=== PATIENT | female | born 1990 | race Caucasian/White ===

== ENCOUNTER 2017-11-02 14:42 | Emergency (ER) | payer OTHER ==
[2017-11-02] MEDS ORDERED: SODIUM CHLORIDE 0.9% 500 ML INFUS.BAG IV ONE (15:00)
[2017-11-02] MEDS ORDERED: ACETAMINOPHEN 1000 MG/100 ML VIAL (NON FORMULARY) IVPB ONE (15:00)
[2017-11-02 15:12] VITALS: BMI 33.1
[2017-11-02] MEDS ORDERED: ACETAMINOPHEN INJECTION 100 ML IVPB ONE (15:15)
[2017-11-02 15:29] LABS: BASO % 0.7 % (0-2.0); EOS % 0.8 % (0-4.5); HEMATOCRIT 31.7 % (32.4-45.2); HEMOGLOBIN 9.7 GM/dL (10.7-15.3); LYMPH % 19.7 % (8-40); MCHC 30.6 g/dl (32.0-36.0); MEAN CELL VOLUME 62.3 fl (80-96); MEAN PLT VOLUME 9.6 fl (7.5-11.1); MONO % 5.6 % (3.8-10.2); NEUT % 73.2 % (42.8-82.8); PLATELET COUNT 245 K/MM3 (134-434); RBC 5.08 M/mm3 (3.60-5.2); RDW 17.4 % (11.6-15.6); WHITE BLOOD COUNT 12.2 K/mm3 (4.0-10.0)
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
[2017-11-02 15:52] LABS: ALBUMIN 2.4 g/dl (3.4-5.0); ALK PHOS 72 U/L (45-117); ANION GAP 6 (8-16); BILIRUBIN,TOTAL 0.3 mg/dL (0.2-1.0); BLOOD UREA NITROGEN 9 mg/dL (7-18); CALCIUM 8.3 mg/dL (8.5-10.1); CHLORIDE 111 mmol/L (98-107); CO2 22 mmol/L (21-32); CREATININE 0.7 mg/dL (0.55-1.02); GLUCOSE,RANDOM 123 mg/dL (74-106); MAGNESIUM 1.9 mg/dL (1.8-2.4); POTASSIUM 3.9 mmol/L (3.5-5.1); SGOT/AST 16 U/L (15-37); SGPT/ALT 18 U/L (12-78); SODIUM 139 mmol/L (136-145); TOT PROT 6.5 g/dl (6.4-8.2)
[2017-11-02 16:11] LABS: MCH 19.1 pg (25.7-33.7)
[2017-11-02 17:02] LABS: ANISOCYTOSIS 2+
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
[2017-11-02 19:43] LABS: URINE APPEARANCE CLOUDY; URINE BILIRUBIN NEGATIVE (<2.0 mg/dL); URINE COLOR LTYELLOW; URINE GLUCOSE (UA) NEGATIVE (NEGATIVE); URINE KETONE NEGATIVE (NEGATIVE); URINE NITRITE NEGATIVE (NEGATIVE); URINE PROTEIN NEGATIVE (NEGATIVE); URINE UROBILINOGEN NEGATIVE mg/dL (0.2-1.0)
[2017-11-02 19:46] LABS: URINE LEUK ESTERASE 3+ (NEGATIVE)
[2017-11-02 19:48] LABS: EPI CELLS MANY /HPF (FEW); URINE BACTERIA RARE /hpf (NONE SEEN); URINE MUCUS RARE
[2017-11-02] MEDS ORDERED: NITROFURANTOIN MACROCRYSTAL 50 MG CAPSULE (FP) PO SCH (20:00)
[2017-11-02] MEDS ORDERED: NITROFURANTOIN MACROCRYSTAL 50 MG CAPSULE (FP) ONE (20:35)
[2017-11-02 22:46] VITALS: BP 121/70; PULSE 75; TEMP 98.5
--- NOTE | 2017-11-04 14:21 | EKG ---
Test Reason : Blood Pressure : / mmHG Vent. Rate : 111 BPM Atrial Rate : 111 BPM P-R Int : 144 ms QRS Dur : 086 ms QT Int : 332 ms P-R-T Axes : 020 041 047 degrees QTc Int : 451 ms SINUS TACHYCARDIA CANNOT RULE OUT ANTERIOR INFARCT , AGE UNDETERMINED ABNORMAL ECG NO PREVIOUS ECGS AVAILABLE Confirmed by TAYE LOOMIS MD ([id number]) on 11/04/2017 2:20:41 PM Referred By: Confirmed By:TAYE LOOMIS MD
== END 2017-11-02 23:50 | disposition home or self-care (01) ==
LOC: JER 14:42
PROC: 3E033NZ Introduction of Analgesics, Hypnotics, Sedatives into Peripheral Vein, Percutaneous Approach (ICD-10-PCS; principal; 2017-11-02)
DX: O26.892 Other specified pregnancy related conditions, second trimester (principal); S39.81XA Other specified injuries of abdomen, initial encounter; V43.52XA Car driver injured in collision with other type car in traffic accident, initial encounter; Y92.414 Local residential or business street as the place of occurrence of the external cause; Y93.89 Activity, other specified; O24.410 Gestational diabetes mellitus in pregnancy, diet controlled; O13.2 Gestational [pregnancy-induced] hypertension without significant proteinuria, second trimester; Z3A.25 25 weeks gestation of pregnancy
CPT/HCPCS: 36415; 71046-TC-FY; 76815; 80053; 81003; 81015; 83735; 85025; 93005; 93010; 99283-25; J0131

== ENCOUNTER 2018-02-10 07:20 | Inpatient (IN) | payer OTHER ==
--- NOTE | 2018-02-10 08:27 | HP ---
Past Medical History - Primary Care Physician PCP:: Kenny Mathur - Admission Chief Complaint: 27yo P2 with at EGA 39 2/7 wks admitted for repeat section. History of Present Illness: Prior C/S x 2 Pt is not in labor. 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: Alzheimer's, CVA, Dementia, Migraine, Multiple Sclerosis, Peripheral Neuropathy, Parkinson's, Seizure, Syncope, TIA, Vertigo, Other Cardiovascular: No: AFIB, Aneurysm, Aortic Insufficiency, Aortic Stenosis, CAD, CHF, Deep Vein Thrombosis, HTN, Hyperlipdemia, [place], Mitral Insufficiency, Mitral Stenosis, Murmur, Pulmonary Hypertension, Other Pulmonary: No: Asthma, Bronchitis, Cancer, COPD, O2 Dependent, Pneumonia, Previously Intubated, Pulmonary Embolus, Pulmonary Fibrosis, Sleep Apnea, Other Gastrointestinal: No: Ascites, Cancer, Constipation, Crohn's Disease, Diverticulitis, Diverticulosis, Esophageal Varices, Gastritis, GERD, GI Bleed, Hemorrhoids, Hiatal Hernia, Inflamatory Bowel Disease, Irritable Bowel Disease, Pancreatitis, Peptic Ulcer Disease, Ulcerative Colitis, Other Hepatobiliary: No: Cirrhosis, Cholelithiasis, Cholecystitis, Choledocholithiasis , Hepatitis A, Hepatitis B, Hepatitis C, Other Renal/: No: Renal Failure, Renal Inusuff, BPH, Cancer, Hematuria, Hemodialysis , Neurogenic Bladder, Renal Calculi, UTI, Other Reproductive: No: Ectopic , Endometriosis, Fibroids, PID, Polycystic Ovary Syndrome, Postmenopausal, Other ...Para: 2 (C/S x 2) Heme/Onc: Yes: Anemia Infectious Disease: No: AIDS, C-Diff, Herpes Zoster, HIV, MRSA, STD's, Tuberculosis, VREF, Other Psych: No: Addictions, Anxiety, Bipolar, Depression, Panic, Psychosis, Schizophrenia, Other Musculoskeletal: No: Bursitis, Chronic low back pain, Hemiparesis, Hemiplegia, Osteoarthritis, Paraplegia, Other Rheumatology: No: Fibromyalgia, Gout, Lupus, Rheumatoid Arthritis, Sarcoidosis, Vasculitis, Other ENT: No: Allergic Rhinitis, Sinusitis, Other Endocrine: No: Tomás's Disease, [place]'s Disease, Diabetes Insipidus, Diabetes Mellitus, Hyperparathyroidism, Hyperthyroidism, Hypothyroidism, Osteopenia, SIADH, Other Dermatology: No: Basal Cell, Cellulitis, Eczema, Melanoma, Psoriasis, Squamous Cell, Other - Past Surgical History Past Surgical History: Yes: Hx Myomectomy: No Hx Transabdominal Cerclage: No - Smoking History Smoking history: Never smoked Have you smoked in the past 12 months: No - Alcohol/Substance Use Hx Alcohol Use: No History of Substance Use: reports: None - Social History Usual Living Arrangement: Yes: With Spouse, With Child ADL: Independent History of Recent Travel: No Home Medications - Allergies Allergies/Adverse Reactions: Allergies Allergy/AdvReac Type Severity Reaction Status Date / Time No Known Allergies Allergy Verified 02/10/18 08:11 - Home Medications Home Medications: Ambulatory Orders Vit Calc,Iron,Folic [ Vitamins] 1 each PO DAILY 11/02/17 Family Disease History - Family Disease History Family History: Unremarkable Review of Systems - Review of Systems Constitutional: reports: No Symptoms Eyes: reports: No Symptoms HENT: reports: No Symptoms Neck: reports: No Symptoms Cardiovascular: reports: No Symptoms Respiratory: reports: No Symptoms Gastrointestinal: reports: No Symptoms Genitourinary: reports: No Symptoms Breasts: reports: No Symptoms Reported Musculoskeletal: reports: No Symptoms Integumentary: reports: No Symptoms Neurological: reports: No Symptoms Endocrine: reports: No Symptoms Hematology/Lymphatic: reports: No Symptoms Psychiatric: reports: No Symptoms Pain Intensity: 0 Physical Exam - Maternity Constitutional: Yes: Well Nourished, No Distress, Calm Eyes: Yes: WNL, Conjunctiva Clear HENT: Yes: WNL, Atraumatic, Normocephalic Neck: Yes: WNL, Supple, Trachea Midline Cardiovascular: Yes: WNL, Regular Rate and Rhythm Lungs: Clear to auscultation, Normal air movement - Abdominal Exam/OB Fundal Height: 39 Number of Fetuses: Single Presentation: Vertex Contractions: No Regularity: Irritability Intensity: Unaware Monitor Mode: External Heart Rate (range): 130 Heart Rate Location: Midline Category: I Accelerations: Uniform Decelerations: None - Vaginal Exam/OB Vaginal Bleediing: No Speculum Exam: No Presentation: Vertex/Position - Physical Exam Musculoskeletal: Yes: WNL Extremities: Yes: WNL Edema: Yes Edema: LLE: Trace, RLE: Trace Integumentary: Yes: WNL Deep Tendon Reflex Grade: Normal +2 ...Motor Strength: WNL Psychiatric: Yes: WNL, Alert, Oriented Hemorrhage Risk Assessment - Risk Factors Medium Risk Factors: Yes: None High Risk Factors: Yes: None Risk Score: 1 Risk Level: Medium Risk Imaging - Results Ultrasound: Report Reviewed Assessment/Plan 27yo P2 with at EGA 39 2/7 wks admitted for repeat section. We discussed the risks and benefits of C/S at length, including but not limited to scarring, pain, bleeding, infection, injury to underlying organs and structures, need for additional surgery to repair/treat any problems or complications, complications/injuries, etc. The pt verbalized her understanding and requested to proceed with surgery. The pt is aware that all surgeries have risks and no guarantees can be provided.
[2018-02-10 08:52] VITALS: BMI 35.1
[2018-02-10] MEDS ORDERED: CITRIC ACID/SODIUM CITRATE 30 ML UNIT-DOSE CUP PO ONE ×2 (08:55→08:57)
[2018-02-10] MEDS ORDERED: ELECTROLYTE-148 SOLN 500 ML IV ONE (08:57)
[2018-02-10] MEDS ORDERED: TUBERCULIN PPD 5 TU/0.1ML SYRINGE (IN PATIENT USE ONLY) ID ONE (08:57)
[2018-02-10] MEDS: ELECTROLYTE-148 SOLN 1,000 ML IV SCH (09:00)
[2018-02-10] MEDS ORDERED: ePHEDrine SULFATE 50 MG/1 ML AMPULE ONE (09:17)
[2018-02-10] MEDS ORDERED: morphine SULFATE/Preservative Free 0.5 MG/ML (1cc Syringe) ONE (09:17)
[2018-02-10] MEDS ORDERED: PHENYLEPHRINE HCL 10 MG/1 ML SINGLE DOSE VIAL ONE (09:32)
[2018-02-10] MEDS ORDERED: ceFAZolin SODIUM 1 GM VIAL ONE ×2 (09:35→16:36)
[2018-02-10] MEDS ORDERED: OXYTOCIN 10 UNITS/ML VIAL ONE (09:37)
[2018-02-10] MEDS ORDERED: IBUPROFEN 800 MG/8 ML IJ IVPB PRN (11:02)
[2018-02-10] MEDS ORDERED: METHYLERGONOVINE MALEATE 0.2 MG/1 ML AMP IM PRN (11:02)
[2018-02-10] MEDS ORDERED: WITCH HAZEL 50% (TUCKS) 40 PAD/JAR PAD TP PRN (11:02)
[2018-02-10] MEDS ORDERED: ONDANSETRON 4 MG/2 ML VIAL IVPUSH PRN (11:13)
--- NOTE | 2018-02-10 11:13 | OP ---
Operative Note - Note: Operative Date: 02/10/18 Pre-Operative Diagnosis: at EGA 39w 2d. Prior C/S Operation: Repeat LTC/S Findings: Live baby girl in vtx presentation. No meconium in amniotic fluid. 9/9. Normal uterus, ovaries, tubes. Post-Operative Diagnosis: Same as Pre-op Surgeon: Kenny Mathur Packing Inspector: Damon Dumont Anesthesiologist/HAIR BOILER: Jose Emery Anesthesia: Spinal Specimens Removed: Placenta Estimated Blood Loss (mls): 700 Drains & Tubes with Location: [place] Cath Drains, Volume Out (mls): 250 Blood Volume Replaced (mls): 0 Fluid Volume Replaced (mls): 1,700 Operative Report Dictated: Yes
[2018-02-10] MEDS ORDERED: DEXTROSE 5%-WATER - 50 ML IVPB ONE (16:36)
[2018-02-10] MEDS: CEFAZOLIN 1 GM in DEXTROSE 5%-WATER - 50 ML IVPB SCH (17:07)
--- NOTE | 2018-02-10 20:23 | OP ---
DATE OF OPERATION: 02/10/2018 PREOPERATIVE DIAGNOSIS: at estimated gestational age of 39 weeks 2 days, previous section x2. POSTOPERATIVE DIAGNOSIS: at estimated gestational age of 39 weeks 2 days, previous section x2. PROCEDURE: Repeat low transverse section via Pfannenstiel skin incision. SURGEON: Kenny Mathur MD RHIT: Damon Dumont MD ANESTHESIOLOGIST: Jose Emery DO ANESTHESIA: Spinal. COMPLICATIONS: None. ESTIMATED BLOOD LOSS: 700 mL. URINE OUTPUT: 250 mL of clear urine at the end of the procedure. INTRAVENOUS FLUIDS: 1700 mL of Crystalloid. PATHOLOGY: Placenta. FINDINGS: Live baby girl in vertex presentation. No meconium in amniotic fluids. Normal uterus, fallopian tubes, and ovaries. Apgars are 9 and 9. PROCEDURE: The patient was met preoperatively. Risks, benefits, and alternatives of surgery were discussed in detail. All questions were answered. The patient was brought to the OR with IV running. She was placed on the surgical table in the sitting position. Spinal anesthesia was achieved without difficulty. The patient was then placed in a supine position with a leftward tilt. A [place] catheter was inserted and left to drain to gravity. The patient was then prepped and draped in the usual sterile fashion. The timeout procedure was conducted as per standard protocol. The surgeons then proceeded with the operation. The patient was noted to have a hypertrophic and indented scar from her previous deliveries. The scar was excised and sent to Pathology. The subcutaneous incision was then taken down to the level of the fascia. The fascia was incised in the midline. The incision was extended bilaterally using Kelly scissors. The fascia was then dissected away from the rectus muscles superiorly and inferiorly. The rectus muscles were in the midline. The peritoneum was identified and entered sharply. The peritoneal incision was extended superiorly and inferiorly using Metzenbaum scissors. The bladder was then dissected away from the lower uterine segment using sharp dissection. The bladder was reflected downwards. The uterus was incised transversely in the lower uterine segment. The uterine incision was extended bilaterally using bandage scissors. The amniotic sac was ruptured and clear amniotic fluid was noted. The baby was delivered from vertex presentation without complications. The umbilical cord was clamped and cut. The baby was crying spontaneously and handed to the awaiting coal tower operator. The placenta was then removed manually. The uterus was cleared of all clots and debris. The uterine incision was repaired using a 0 Biosyn suture with running locking stitch. Good hemostasis was noted. The uterine incision was then imbricated using a 0 Biosyn suture with good hemostasis. The bladder peritoneum was reapproximated using a 0 Biosyn suture. Good hemostasis was confirmed. The operative site was irrigated using copious amounts of normal saline. Once the saline was aspirated, good hemostasis was noted. The peritoneum was then approximated using a 2-0 chromic suture. The rectus muscles were approximated using several interrupted 2-0 chromic sutures. The fascia was closed using a 0 Vicryl suture with good hemostasis and approximation. The subcutaneous adipose tissues were approximated using several interrupted 0 Vicryl sutures to eliminate space. The skin was then closed using a 4-0 Vicryl suture using a subcutaneous technique. Sponge, lap, and needle counts were correct. The patient was transferred to recovery room, awakened, and in stable condition. Feliciano OBREGON/[id number]
[2018-02-11] MEDS ORDERED: DEXTROSE 5%-WATER - 50 ML IVPB ONE ×2 (01:08→09:33)
[2018-02-11] MEDS ORDERED: ceFAZolin SODIUM 1 GM VIAL ONE ×2 (01:09→09:33)
[2018-02-11] MEDS: CEFAZOLIN 1 GM in DEXTROSE 5%-WATER - 50 ML IVPB SCH ×2 (01:16→10:00)
[2018-02-11 08:12] LABS: BASO % 0.4 % (0-2.0); EOS % 1.1 % (0-4.5); HEMATOCRIT 30.3 % (32.4-45.2); HEMOGLOBIN 9.1 GM/dL (10.7-15.3); LYMPH % 23.5 % (8-40); MCHC 29.9 g/dl (32.0-36.0); MEAN PLT VOLUME 10.4 fl (7.5-11.1); MONO % 5.2 % (3.8-10.2); NEUT % 69.8 % (42.8-82.8); PLATELET COUNT 192 K/MM3 (134-434); RBC 5.14 M/mm3 (3.60-5.2); RDW 19.1 % (11.6-15.6); WHITE BLOOD COUNT 12.5 K/mm3 (4.0-10.0)
[2018-02-11 08:20] LABS: MCH 17.6 pg (25.7-33.7)
--- NOTE | 2018-02-11 08:52 | PN ---
Progress Note (short form) - Note Progress Note: S/P C Section under spinal anesthesia with duramorph uneventful.Patient stable and has little pain for which she is on medication.No any anesthesia related problem.Patient Dc from the anesthesia care.
--- NOTE | 2018-02-11 09:24 | PN ---
Post Progress Note - Subjective Subjective: No complaints Post Day: 1 Type of Delivery: Repeat C/S Vital Signs: Vital Signs Temperature 98.9 F 02/11/18 06:00 Pulse Rate 76 02/11/18 06:00 Respiratory Rate 20 02/11/18 06:00 Blood Pressure 114/74 02/11/18 06:00 O2 Sat by Pulse Oximetry (%) 100 02/10/18 11:40 Uterus: Yes: Fundus Firm, Fundus below umbilicus, Non-tender Incision: Yes: Dressing dry and intact Abdomen/GI: Yes: Abdomen soft, Tolerating PO Lochia: Yes: Rubra Lochia, amount: Small Extremities: Yes: Edema (1+ bilat) Perineum: Yes: Intact - Labs Labs: CBC WBC 12.5 K/mm3 (4.0-10.0) H 02/11/18 06:15 RBC 5.14 M/mm3 (3.60-5.2) 02/11/18 06:15 Hgb 9.1 GM/dL (10.7-15.3) L 02/11/18 06:15 Hct 30.3 % (32.4-45.2) L 02/11/18 06:15 MCV 59.0 fl (80-96) L 02/11/18 06:15 MCH 17.6 pg (25.7-33.7) L 02/11/18 06:15 MCHC 29.9 g/dl (32.0-36.0) L 02/11/18 06:15 RDW 19.1 % (11.6-15.6) H 02/11/18 06:15 Plt Count 192 K/MM3 (134-434) 02/11/18 06:15 MPV 10.4 fl (7.5-11.1) 02/11/18 06:15 Absolute Neuts (auto) 8.7 K/mm3 (1.5-8.0) H 02/11/18 06:15 Neutrophils % 69.8 % (42.8-82.8) 02/11/18 06:15 Lymphocytes % 23.5 % (8-40) 02/11/18 06:15 Monocytes % 5.2 % (3.8-10.2) 02/11/18 06:15 Eosinophils % 1.1 % (0-4.5) 02/11/18 06:15 Basophils % 0.4 % (0-2.0) 02/11/18 06:15 Nucleated RBC % 0 % (0-0) 02/11/18 06:15 Assessment/Plan 27yo P2 POD#1 s/p repeat LTC/S doing well, stable, afebrile. Asymptomatic for anemia. Post op care reviewed. Continue routine care. Ambulation encouraged Advance diet as tolerated..
[2018-02-11] MEDS: PRENATAL VITAMINS W/ FOLIC ACID TABLET (FP) PO SCH (09:57)
[2018-02-11] MEDS: IBUPROFEN 600 MG TABLET (FP) PO PRN ×3 (09:57→20:11)
[2018-02-11] MEDS: ENOXAPARIN NA (PORCINE) 40 MG/0.4 ML DISP.SYRIN SQ SCH (09:57)
[2018-02-11] MEDS ORDERED: DIPHTH,PERTUSS(ACELL),TET 0.5 ML DISP.SYRIN IM ONE (10:00)
[2018-02-11] MEDS ORDERED: BISACODYL 10 MG SUPP.RECT RC PRN (11:02)
[2018-02-11] MEDS: OXYTOCIN 20 UNITS in 0.9% NS 20 UNIT/1,000 ML INFUS.BAG IV SCH ×2 (12:08→19:38)
[2018-02-11] MEDS: ELECTROLYTE-148 SOLN 1,000 ML IV SCH (14:25)
[2018-02-11] MEDS: SENNOSIDES/DOCUSATE COMBO (SENNA PLUS) TABLET (UD) PO PRN (21:15)
[2018-02-12] MEDS: IBUPROFEN 600 MG TABLET (FP) PO PRN ×3 (05:59→21:38)
[2018-02-12] MEDS: oxyCODONE HCL 5 MG TABLET PO PRN ×2 (08:58→21:38)
[2018-02-12] MEDS: SIMETHICONE 80 MG TAB.CHEW (FP) PO PRN ×3 (08:59→21:38)
[2018-02-12] MEDS: ENOXAPARIN NA (PORCINE) 40 MG/0.4 ML DISP.SYRIN SQ SCH (09:19)
[2018-02-12] MEDS: PRENATAL VITAMINS W/ FOLIC ACID TABLET (FP) PO SCH (09:20)
--- NOTE | 2018-02-12 14:57 | PN ---
Post Progress Note - Subjective Subjective: No complaints Post Day: 2 Type of Delivery: Repeat C/S Vital Signs: Vital Signs Temperature 97.9 F 02/12/18 10:00 Pulse Rate 64 02/12/18 10:00 Respiratory Rate 20 02/12/18 10:00 Blood Pressure 121/76 02/12/18 10:00 O2 Sat by Pulse Oximetry (%) 100 02/10/18 11:40 Breast Exam: Yes: Soft Uterus: Yes: Fundus Firm Incision: Yes: Sutures intact Abdomen/GI: Yes: Abdomen soft, Tolerating PO Lochia: Yes: Rubra Lochia, amount: Small Extremities: Yes: Calves non-tender, Edema (trace) Perineum: Yes: Intact Activity: Ambulating - Labs Labs: CBC WBC 12.5 K/mm3 (4.0-10.0) H 02/11/18 06:15 RBC 5.14 M/mm3 (3.60-5.2) 02/11/18 06:15 Hgb 9.1 GM/dL (10.7-15.3) L 02/11/18 06:15 Hct 30.3 % (32.4-45.2) L 02/11/18 06:15 MCV 59.0 fl (80-96) L 02/11/18 06:15 MCH 17.6 pg (25.7-33.7) L 02/11/18 06:15 MCHC 29.9 g/dl (32.0-36.0) L 02/11/18 06:15 RDW 19.1 % (11.6-15.6) H 02/11/18 06:15 Plt Count 192 K/MM3 (134-434) 02/11/18 06:15 MPV 10.4 fl (7.5-11.1) 02/11/18 06:15 Absolute Neuts (auto) 8.7 K/mm3 (1.5-8.0) H 02/11/18 06:15 Neutrophils % 69.8 % (42.8-82.8) 02/11/18 06:15 Lymphocytes % 23.5 % (8-40) 02/11/18 06:15 Monocytes % 5.2 % (3.8-10.2) 02/11/18 06:15 Eosinophils % 1.1 % (0-4.5) 02/11/18 06:15 Basophils % 0.4 % (0-2.0) 02/11/18 06:15 Nucleated RBC % 0 % (0-0) 02/11/18 06:15 Assessment/Plan 27yo P2 POD#2 s/p repeat LTC/S doing well, stable, afebrile. Asymptomatic for anemia. Post op care reviewed. Continue routine care. Ambulation encouraged Advance diet as tolerated..
--- NOTE | 2018-02-12 15:00 | DS ---
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 Vital Signs: Vital Signs Temperature 97.9 F 02/12/18 10:00 Pulse Rate 64 02/12/18 10:00 Respiratory Rate 20 02/12/18 10:00 Blood Pressure 121/76 02/12/18 10:00 O2 Sat by Pulse Oximetry (%) 100 02/10/18 11:40 Constitutional: Yes: Well Nourished, No Distress, Calm Eyes: Yes: WNL, Conjunctiva Clear HENT: Yes: WNL, Atraumatic, Normocephalic Neck: Yes: WNL, Supple, Trachea Midline Cardiovascular: Yes: WNL, Regular Rate and Rhythm Respiratory: Yes: WNL, Regular, CTA Bilaterally Gastrointestinal: Yes: WNL, Normal Bowel Sounds, Soft ...Rectal Exam: Yes: Deferred Renal/: Yes: WNL ....Post : Yes: Uterus firm, Uterus non-tender, Slight lochia rubra Breast(s): Yes: WNL Musculoskeletal: Yes: WNL Extremities: Yes: WNL Edema: Yes Edema: LLE: Trace, RLE: Trace Integumentary: Yes: WNL Wound/Incision: Yes: Clean/Dry, Well Approximated, Sutures Intact, Open to air Neurological: Yes: WNL, Alert, Oriented ...Motor Strength: WNL Psychiatric: Yes: WNL, Alert, Oriented Labs: CBC, BMP 02/11/18 06:15 Delivery - Delivery Section: Repeat, Low Flap Transverse Type of Anesthesia: Spinal Episiotomy/Laceration: None EBL (cc): 700 Delivery, Single - Stages of Labor Date of Delivery: 02/10/18 Time of Delivery: 09:59 Date Placenta Delivered: 02/10/18 Time Placenta Delivered: 10:00 Placenta: Yes: Expressed, Manual Removal - Condition of Piccoloist/Mammography Tech Present: Yes Name: Myrna Rm Gender: Female Weight: 3.629 kg Position: Right, OT Total Hours ROM (Hrs/Mins): 2 min - 1 Minute Total Score: 9 10 Minutes Total Score: 9 - Feeding Plan Initial Plan: Exclusive throughout hospitalization Discharge Summary Reason For Visit: Repeat C/S at 39 wks , prior C/S Procedures: Principal: Repeat LT C/S Hospital Course: Normal recovery Condition: Good - Instructions Diet, Activity, Other Instructions: Physical activity Resume your normal everyday activity as tolerated no heavy lifting or exercise until seen by your surgeon. You may walk unlimited judith of and climb stairs. You may resume driving the car when you feel safe and comfortable behind the wheel. No sexual activity as instructed. Wound care If you have a bandage, leave it on, and keep dry for 48-72 hours. After that time discard the outer bandage. If they are tapes on the skin under the out of bandage leave them in place. They will peel off in the next 7 to 10 days. Do Not Peel them off. You may shower the day after surgery. If there are tapes present on the skin, you may shower over them. Diet There are no dietary restrictions. Eat healthy, high-fiber foods. Drink 6 to 8 glasses of liquid each day. This will assist in keeping your bowels are regular. Pain management You may take Tylenol or acetaminophen or Ibuprofen (for example, Motrin, Advil etc.) from my pain prescription medication is ordered should be taken as prescribed for moderate to severe pain. Call MD for any of the following: Severe pain not relieved by medication Fever of 101 or higher Excessive bleeding or drainage on dressing Inability to urinate Referrals: eKnny Mathur MD [Staff Physician] - Disposition: HOME - Home Medications Comprehensive Discharge Medication List: Ambulatory Orders Vit Calc,Iron,Folic [ Vitamins] 1 each PO DAILY 11/02/17
[2018-02-12] MEDS: ACETAMINOPHEN 325 MG TABLET (FP) PO PRN ×2 (16:12→21:39)
--- NOTE | 2018-02-12 17:44 | PATH ---
Surgical Pathology Report Patient Name: JULIA ELIZABETH Med. Rec. #: [id number] /Age/Gender: 1990 (Age: 27) / F Account: [id number] Location: [facility] OBS/PAROLE DIRECTOR Taken: 02/10/2018 Received: 02/11/2018 Reported: 02/12/2018 Physicians: Kenny Mathur M.D. Specimen(s) Received A: OLD SCAR B: PLACENTA Clinical History x 2 Final Diagnosis A. OLD SCAR, EXCISION: SEGMENTS OF SKIN WITH HYPERTROPHIC SCAR. B. PLACENTA: THIRD TRIMESTER PLACENTA. TRIVASCULAR CORD. MEMBRANES WITH NO DIAGNOSTIC ABNORMALITIES. Electronically Signed Rick Ventura M.D. Gross Description A. Received fresh to "old scar" are two portions of skin measuring 10 x 0.4 x 0.9cm and 4 x 0.4 x 2.0cm, respectively. Linear scar is seen in both segments of skin. Printing Gray Cloth Tender sections are submitted in the one cassette. B. The specimen is received fresh labeled placenta and is a 541 gram, 18 x17 x 3cm. placenta with attached membranes and umbilical cord. The attached membranes are glistening, translucent, and insert marginally. The umbilical cord measures 18 cm. in length and averages 1.5 cm. in diameter. The cord inserts 4 centimeter to the nearest margin. No true knots or strictures are identified. Cut surface of the umbilical cord reveals 3 vessels. Sectioning reveals red-brown, spongy parenchyma. No lesions are identified. Printing Gray Cloth Tender sections are submitted in three cassettes as follows: 1- membrane rolls and umbilical cord; 2-3- full thickness sections of placenta KWS/02/11/2018 sulki/02/11/2018
[2018-02-12] MEDS: SENNOSIDES/DOCUSATE COMBO (SENNA PLUS) TABLET (UD) PO PRN (21:37)
--- NOTE | 2018-02-13 00:53 | PN ---
Post Progress Note - Subjective Subjective: Patient without acute complaints. Reports tolerating oral intake without nausea or vomiting. Ambulating without dizziness. Denies fevers or chills. Pain well controlled with oral pain medication. without difficulty. Passing flatus. Post Day: 3 Type of Delivery: Repeat C/S Vital Signs: Vital Signs Temperature 97.9 F 02/12/18 10:00 Pulse Rate 64 02/12/18 10:00 Respiratory Rate 20 02/12/18 10:00 Blood Pressure 121/76 02/12/18 10:00 O2 Sat by Pulse Oximetry (%) 100 02/10/18 11:40 Breast Exam: Yes: Engorged Uterus: Yes: Fundus Firm Incision: Yes: Sutures intact. No: Redness, Oozing Abdomen/GI: Yes: Abdomen soft, Tender (mild incisional ), Passing flatus, Tolerating PO Lochia: Yes: Serosa Lochia, amount: Small Extremities: Yes: Calves non-tender, Edema (trace) Activity: Ambulating - Labs Labs: CBC WBC 12.5 K/mm3 (4.0-10.0) H 02/11/18 06:15 RBC 5.14 M/mm3 (3.60-5.2) 02/11/18 06:15 Hgb 9.1 GM/dL (10.7-15.3) L 02/11/18 06:15 Hct 30.3 % (32.4-45.2) L 02/11/18 06:15 MCV 59.0 fl (80-96) L 02/11/18 06:15 MCH 17.6 pg (25.7-33.7) L 02/11/18 06:15 MCHC 29.9 g/dl (32.0-36.0) L 02/11/18 06:15 RDW 19.1 % (11.6-15.6) H 02/11/18 06:15 Plt Count 192 K/MM3 (134-434) 02/11/18 06:15 MPV 10.4 fl (7.5-11.1) 02/11/18 06:15 Absolute Neuts (auto) 8.7 K/mm3 (1.5-8.0) H 02/11/18 06:15 Neutrophils % 69.8 % (42.8-82.8) 02/11/18 06:15 Lymphocytes % 23.5 % (8-40) 02/11/18 06:15 Monocytes % 5.2 % (3.8-10.2) 02/11/18 06:15 Eosinophils % 1.1 % (0-4.5) 02/11/18 06:15 Basophils % 0.4 % (0-2.0) 02/11/18 06:15 Nucleated RBC % 0 % (0-0) 02/11/18 06:15 Assessment/Plan 27 yo POD # 3 s/p CD, afebrile, vital signs stable, doing well 1. Patient stable for discharge home today. 2. Patient encouraged to contact MD for: - Severe pain not controlled by oral pain medication - Fevers or chills - Nausea or vomiting, intolerance of oral intake - Incision redness, tenderness or discharge 3. Patient to follow up in office in 1-2 weeks for incision check, 4-6 weeks for visit
[2018-02-13] MEDS: ACETAMINOPHEN 325 MG TABLET (FP) PO PRN (02:16)
[2018-02-13] MEDS: IBUPROFEN 600 MG TABLET (FP) PO PRN (02:16)
[2018-02-13] MEDS: SIMETHICONE 80 MG TAB.CHEW (FP) PO PRN (02:16)
[2018-02-13 07:17] LABS: BASO % 0.6 % (0-2.0); HEMATOCRIT 25.6 % (32.4-45.2); HEMOGLOBIN 7.8 GM/dL (10.7-15.3); LYMPH % 33.3 % (8-40); MCHC 30.4 g/dl (32.0-36.0); MEAN CELL VOLUME 58.7 fl (80-96); MEAN PLT VOLUME 10.1 fl (7.5-11.1); MONO % 4.6 % (3.8-10.2); NEUT % 58.5 % (42.8-82.8); PLATELET COUNT 205 K/MM3 (134-434); RBC 4.36 M/mm3 (3.60-5.2); RDW 18.7 % (11.6-15.6); WHITE BLOOD COUNT 13.6 K/mm3 (4.0-10.0)
[2018-02-13 07:41] LABS: MCH 17.8 pg (25.7-33.7)
[2018-02-13] MEDS: PRENATAL VITAMINS W/ FOLIC ACID TABLET (FP) PO SCH (09:59)
[2018-02-13] MEDS: ENOXAPARIN NA (PORCINE) 40 MG/0.4 ML DISP.SYRIN SQ SCH (09:59)
[2018-02-13 10:21] VITALS: BP 138/85; PULSE 57; TEMP 98
== END 2018-02-13 14:15 | disposition home or self-care (01) | DRG 540 ==
LOC: JLDR 07:20 → J3W 12:51
PROVIDERS: ADMIT Obstetrics & Gynecology; ATTEND Obstetrics & Gynecology
PROC: 10D00Z1 Extraction of Products of Conception, Low, Open Approach (ICD-10-PCS; principal; 2018-02-10)
DX: O34.219 Maternal care for unspecified type scar from previous cesarean delivery (principal); Z3A.39 39 weeks gestation of pregnancy; Z37.0 Single live birth
CPT/HCPCS: 36415; 85025; 88304-TC; 88307-TC; 90715